=== PATIENT | male | born 1970 | race Caucasian/White ===

== ENCOUNTER 2018-11-02 08:26 | Inpatient (IN) | payer OTHER ==
[~2018-11-02] VITALS: Ht 177.8 cm; Wt 75.3 kg
[2018-11-02 08:26] VITALS: BP 132/95
--- NOTE | 2018-11-02 08:26 | NUR ---
Derek crow in [facility] - 11/02/18 at 0829 by MMTHEM Patient MARJORIE EDEN, transferred to bed 4. RN evaluating patient at [facility]
--- NOTE | 2018-11-02 08:26 | NUR ---
Patient BIBA BLS, transferred to bed 4. RN evaluating patient at bedside.
--- NOTE | 2018-11-02 08:26 | NUR ---
BIBA. AAO X 4 C/O SOB. PER PT WAS AT A DOCTOR'S OFFICE FOR PFT. PT WAS GIVEN ALBUTEROL AND PT BECAME TACHY 170 BPM, PT FELT NUMBNESS AND TINGLING TO HANDS AND FEET. SYMPTOMS SUBSIDED AT THIS TIME. PT DENIES DIZZINESS OR SOB AT THIS TIME. EQUAL PILLO LUNGS CLEAR UPON AUSCULTATION. PT PLACED ON FULL CHROMOSOMAL DISORDERS COUNSELOR. HOB UP. BED SIDE RAILS UP X1. ON LOW BED POSITION, LOCKED. ER MADE AWARE OF PT STATUS.
--- NOTE | 2018-11-02 08:29 | NUR ---
Dr. Herrera evaluating patient at bedside.
[2018-11-02] MEDS ORDERED: diphenhydrAMINE 50 MG/ML VIAL IVP ONE (08:40)
[2018-11-02] MEDS ORDERED: DEXAMETHASONE 10 MG/ML VIAL IVP ONE (08:40)
[2018-11-02] MEDS ORDERED: FAMOTIDINE 20 MG/2 ML VIAL IVP ONE (08:40)
--- NOTE | 2018-11-02 08:52 | NUR ---
heating technician at bedside.
[2018-11-02 08:59] LABS: BASOPHILS # (AUTO) 0.1 K/uL (0.00-0.22); BASOPHILS % (AUTO) 1.1 % (0.0-2.0); EOSINOPHILS # (AUTO) 0.2 K/uL (0-0.4); EOSINOPHILS % (AUTO) 3.3 % (0.0-4.0); HEMATOCRIT 48.1 % (36-52); HEMOGLOBIN 16.2 g/dL (12.0-18.0); LYMPHOCYTES # (AUTO) 1.1 K/uL (2.0-11.5); LYMPHOCYTES % (AUTO) 18.6 % (20.5-51.1); MEAN CORPUSCULAR HEMOGLOBIN 31 pg (27-31); MEAN CORPUSCULAR HGB CONC 34 g/dL (33-37); MEAN CORPUSCULAR VOLUME 92.8 fL (80-94); MONOCYTES # (AUTO) 0.4 K/uL (0.8-1.0); MONOCYTES % (AUTO) 6.9 % (1.7-9.3); NEUTROPHILS % (AUTO) 70.1 % (42.2-75.2); PLATELET COUNT (AUTO) 211 K/uL (140-450); RED BLOOD CELL COUNT(AUTO) 5.18 MIL/uL (4.20-6.10); RED CELL DISTRIBUTION WIDTH 13.5 % (11.6-13.7); WHITE BLOOD COUNT (AUTO) 5.7 K/uL (4.8-10.8)
[2018-11-02 09:13] LABS: PROTHROMBIN TIME 9.9 secs (10.8-13.4)
[2018-11-02 09:15] LABS: ALBUMIN 3.4 g/dL (3.4-5.0); ANION GAP 11.5 (8-16); CARBON DIOXIDE 28.3 mmol/L (21-32); CREATININE 1.2 mg/dL (0.7-1.3); POTASSIUM 3.8 mmol/L (3.5-5.1)
[2018-11-02 09:37] LABS: D-DIMER < 100 ng/ml (0-400)
[2018-11-02] MEDS ORDERED: LORazepam 2 MG/ML VIAL IVP ONE (09:40)
--- NOTE | 2018-11-02 10:26 | NUR ---
DR RODRIGUEZ AT BEDSIDE.
--- NOTE | 2018-11-02 11:11 | NUR ---
RECEIVED PHONE CALL FROM DR JOHNSON. DR JOHNSON STATED THAT PT WILL BE ADMITTED TO TELE WITH A DIAGNOSIS OF SINUS TACHYCARDIA.
--- NOTE | 2018-11-02 11:23 | NUR ---
Dr. Sandhu evaluating patient at bedside.
[2018-11-02 12:00] VITALS: BP 150/102
--- NOTE | 2018-11-02 12:00 | NUR ---
Patient will be admitted to care of Dr Sandhu. Admited to Tele. Will go to room 111 B. Belongings list completed. Report to GUANACO Alcantara.
--- NOTE | 2018-11-02 12:00 | NUR ---
RECEIVED REPORT FROM ER NURSE ASHISH. PT ARRIVED VIA RNEY TO ROOM 111B. AMBULATED FROM [place] TO BED WITH STEADY GAIT. PT A&OX4, NO C/O PAIN. LEFT HAND IV INTACT AND ASYMPTOMATIC. MEDICAL HX PROVIDED BY PT. PT ORIENTED TO ROOM AND UNIT, VERBALIZE UNDERSTANDING. CALL LIGHT WITHIN REACH.
--- NOTE | 2018-11-02 12:30 | NUR ---
HR INCREASED TO 130-140/MIN VIA SUSTAINABLE LANDSCAPE ARCHITECT. NOTED PT AMBULATING TO BATHROOM. PT VOIDED AND RETURNED TO BED. HR WENT DOWN TO 110-120 AT REST. PT DENIES ANY DISCOMFORT. NO APPARENT SIGNS OF DISTRESS.
[2018-11-02 13:47] LABS: BARBITURATE, URINE NEG. ng/ml (NEG <=200); BENZODIAZEPINE, URINE NEG. ng/mL (NEG <=200); CANNABINOID, URINE NEG. ng/mL (NEG <=50); COCAINE, URINE NEG. ng/mL (NEG <=300); OPIATE, URINE NEG. ng/mL (NEG <=2000); PHENCYCLIDINE SCREEN,URINE NEG. ng/mL (NEG <=25)
--- NOTE | 2018-11-02 15:30 | NUR ---
HR WENT UP TO 160/MIN VIA MANUFACTURING AREA MANAGER. PT IN TOILET, NO C/O OF DISCOMFORT. NO SIGNS OF DISTRESS. HR DECREASED TO 120 AT REST IN BED.
[2018-11-02 16:00] VITALS: BP 116/76
--- NOTE | 2018-11-02 17:54 | NUR ---
Paged Dr. Little to confirm cardio consult ordered by Dr. Sandhu. Awaiting call back.
--- NOTE | 2018-11-02 19:23 | NUR ---
Report given to pm nurse Hero. Pt resting in bed, awake, no signs of distress. Call light within reach.
--- NOTE | 2018-11-02 19:25 | NUR ---
Received endorsement from AM shift RN; patient is A/Ox4, able to make need known, ambulatory. Patient is sitting the bed, watching TV. Introduced self, updated board. NO SOB or distress noted, on room air. IV site on left hand, 22 gauge, saline locked. Skin intact. Bed in the lowest position, call light within reach. Initial assessment done. Will continue to monitor.
[2018-11-02 20:00] VITALS: BP 110/76
--- NOTE | 2018-11-02 20:30 | NUR ---
Vitals taken, due meds given, tolerated well.
[2018-11-02] MEDS: METOPROLOL 25 MG TAB PO SCH (21:42)
--- NOTE | 2018-11-02 21:50 | NUR ---
Dr. Little at bedside to assess patient.
--- NOTE | 2018-11-02 23:40 | NUR ---
Vitals taken, patient asleep on left side. Visible chest rise and fall noted.
[2018-11-03] VITALS: BP 101/71
--- NOTE | 2018-11-03 01:45 | NUR ---
Checks made, patient asleep, no distress noted.
--- NOTE | 2018-11-03 03:55 | NUR ---
Vitals taken, patient resting, visible chest rise and fall noted.
[2018-11-03 04:00] VITALS: BP 107/72
--- NOTE | 2018-11-03 05:30 | NUR ---
Checks made, no SOB or distress noted.
--- NOTE | 2018-11-03 07:05 | NUR ---
Endorsed patient to AM shift RN for continuity of care; patient in stable condition.
--- NOTE | 2018-11-03 07:06 | NUR ---
REPORT RECEIVED FROM PM NURSE. PT CURRENTLY LAYING IN BED. NO C/O DISCOMFORT. BREATHING EQUAL AND UNLABORED. CALL LIGHT WITHIN REACH.
--- NOTE | 2018-11-03 08:08 | NUR ---
PATIENT HAS BEEN SCREENED AND CATEGORIZED MODERATE NUTRITION RISK. PATIENT WILL BE SEEN WITHIN 3-5 DAYS OF ADMISSION. 11/04/18[address]
[2018-11-03 08:10] VITALS: BP 122/73
[2018-11-03 08:11] LABS: BASOPHILS % (AUTO) 0.2 % (0.0-2.0); EOSINOPHILS % (AUTO) 0.1 % (0.0-4.0); HEMATOCRIT 44.8 % (36-52); LYMPHOCYTES # (AUTO) 1.6 K/uL (2.0-11.5); LYMPHOCYTES % (AUTO) 11.8 % (20.5-51.1); MEAN CORPUSCULAR HEMOGLOBIN 31 pg (27-31); MEAN CORPUSCULAR HGB CONC 34 g/dL (33-37); MEAN CORPUSCULAR VOLUME 93.4 fL (80-94); MONOCYTES # (AUTO) 0.9 K/uL (0.8-1.0); MONOCYTES % (AUTO) 6.6 % (1.7-9.3); NEUTROPHILS # (AUTO) 10.9 K/uL (1.8-7.7); NEUTROPHILS % (AUTO) 81.3 % (42.2-75.2); PLATELET COUNT (AUTO) 221 K/uL (140-450); RED BLOOD CELL COUNT(AUTO) 4.79 MIL/uL (4.20-6.10); RED CELL DISTRIBUTION WIDTH 13.5 % (11.6-13.7); WHITE BLOOD COUNT (AUTO) 13.4 K/uL (4.8-10.8)
[2018-11-03] MEDS: METOPROLOL 25 MG TAB PO SCH (08:37)
[2018-11-03 08:42] LABS: ANION GAP 12.4 (8-16); CARBON DIOXIDE 27.4 mmol/L (21-32); CREATININE 1.1 mg/dL (0.7-1.3); POTASSIUM 3.8 mmol/L (3.5-5.1)
[2018-11-03] MEDS ORDERED: ECOTRIN 81 MG TABEC PO SCH (09:00)
[2018-11-03] MEDS ORDERED: ASPIRIN 325 MG TABEC PO SCH (09:00)
[2018-11-03 12:10] VITALS: BP 112/82
--- NOTE | 2018-11-03 14:15 | NUR ---
CALLED AND MADE APPOINTMENT WITH DR MARYBEL THOMAS [phone] [facility] ADDRESS [address] [place] [id number]. 11/07/18Wednesday AT 2:15 PM . COPY OF APPOINTMENT PAPER GIVEN TO THE PATIENT .
[2018-11-03] MEDS ORDERED: METO25TE2 PO (14:35)
--- NOTE | 2018-11-03 15:00 | NUR ---
WRITTEN AND VERBAL DISCHARGE INSTRUCTIONS GIVEN TO PT. PT VERBALIZE UNDERSTANDING. DISCHARGED AT THIS TIME TO HOME. PER PT, HE LEFT HIS CAR AT THE DOCTOR'S OFFICE BEHIND THE HOSPITAL. PT AMBULATED WITH STEADY GAIT. NO SIGNS OF DISTRESS. NAME BAND REMOVED. ALL BELONGINGS WITH PT UPON DEPARTURE.
== END 2018-11-03 15:00 | disposition home or self-care (01) | DRG 201 ==
LOC: MED 08:26 → MTU 11:34
PROVIDERS: ADMIT Internal Medicine Pulmonary Disease; ATTEND Internal Medicine Pulmonary Disease
DX: I47.1 Supraventricular tachycardia (principal); T78.8XXA Other adverse effects, not elsewhere classified, initial encounter; Z82.49 Family history of ischemic heart disease and other diseases of the circulatory system; Z87.891 Personal history of nicotine dependence; X58.XXXA Exposure to other specified factors, initial encounter
CPT/HCPCS: 36415; 71045; 80048; 80053; 80305; 83735; 83880; 84484; 85025; 85379; 85610; 85730; 87081; 87086; 96374; 96375; 99285; G0482; J1100; J1200; J2060; J3490; Q0092

== ENCOUNTER 2019-09-20 07:00 | Day surgery (SDC) | payer OTHER ==
[~2019-09-20] VITALS: Ht 177.8 cm; Wt 72.6 kg
[~2019-09-20 07:00] MED LIST: METO25TE2 PO
[2019-09-20] MEDS ORDERED: LISI10TA11 PO (08:02)
[2019-09-20] MEDS ORDERED: METO25TE2 PO (08:02)
[2019-09-20] MEDS ORDERED: fentaNYL 0.05 MG/ML VIAL ONE (09:08)
[2019-09-20] MEDS ORDERED: LIDOCAINE 2% 100 MG/5 ML UJET TP ONE (09:09)
== END 2019-09-20 11:20 | disposition home or self-care (01) ==
LOC: MDS 07:00 → MMU 07:05 → MDS 11:20
PROVIDERS: ATTEND Internal Medicine Gastroenterology
DX: Z12.11 Encounter for screening for malignant neoplasm of colon (principal); Z86.010 Personal history of colon polyps; F41.9 Anxiety disorder, unspecified; J44.9 Chronic obstructive pulmonary disease, unspecified; I10 Essential (primary) hypertension; Z90.49 Acquired absence of other specified parts of digestive tract; Z98.890 Other specified postprocedural states; Z87.891 Personal history of nicotine dependence; Z88.8 Allergy status to other drugs, medicaments and biological substances; Z79.899 Other long term (current) drug therapy
CPT/HCPCS: J3010